=== PATIENT | female | born 1970 | race Caucasian/White ===

== ENCOUNTER 2018-12-30 17:13 | Emergency (ER) | payer OTHER ==
[2018-12-30] MEDS ORDERED: Ketorolac 30 MG/ML SDV IVPUSH ONE (17:23)
[2018-12-30] MEDS ORDERED: Ondansetron 4 MG/2 ML SDV IVPUSH ONE (17:24)
--- NOTE | 2018-12-30 17:43 | EDM.PDOC ---
ED HPI GENERAL MEDICAL PROBLEM - General Chief Complaint: Flank Pain Stated Complaint: BACK PAIN Time Seen by Provider: 12/30/18 17:20 Source of Information: Reports: Patient History Limitations: Reports: No Limitations - History of Present Illness INITIAL COMMENTS - FREE TEXT/NARRATIVE: 48-year-old white female approximate 45 minutes ago started having a sudden sharp left flank pain that was 100 out of 10 with no radiation but states that her vaginal area hurts just as much and also has dysuria she admits to having mild nausea but no vomiting no fever she states she does not have any medical problems normal renal issues no history of renal stones her father does have a history of renal stones Onset: Sudden Duration: Minutes: Quality: Reports: Sharp, Stabbing Severity: Severe Improves with: Reports: None Worsens with: Reports: Other (lying down) Associated Symptoms: Reports: No Other Symptoms Left Flank Pain Score (Numeric/FACES): 10 - Related Data Allergies Allergy/AdvReac Type Severity Reaction Status Date / Time No Known Allergies Allergy Verified 12/30/18 17:25 Home Meds: Home Meds . [No Known Home Meds] 12/30/18 [History] Past Medical History - Past Health History Medical/Surgical History: Denies Medical/Surgical History Social & Family History - Tobacco Use Smoking Status *Q: Unknown Ever Smoked ED ROS GENERAL - Review of Systems Review Of Systems: See Below Constitutional: Denies: Fever, Chills, Malaise, Weakness HEENT: Reports: No Symptoms Respiratory: Reports: No Symptoms Cardiovascular: Reports: No Symptoms Endocrine: Reports: No Symptoms GI/Abdominal: Denies: Abdominal Pain, Anorexia, Constipation, Vomiting : Reports: Dysuria, Flank Pain. Denies: Frequency, Hematuria, Urgency, Urinary Retention Musculoskeletal: Reports: No Symptoms Skin: Reports: No Symptoms Neurological: Reports: No Symptoms Psychiatric: Reports: No Symptoms Hematologic/Lymphatic: Reports: No Symptoms Immunologic: Reports: No Symptoms ED EXAM, RENAL/ - Physical Exam Exam: See Below Exam Limited By: No Limitations General Appearance: Alert, WD/WN, Mild Distress. No: No Apparent Distress Throat/Mouth: Normal Inspection, Normal Oropharynx, Other (mmm) Neck: Normal Inspection, Full Range of Motion Respiratory/Chest: No Respiratory Distress Cardiovascular: Regular Rate, Rhythm, Tachycardia (mild tachycardia ) GI/Abdominal: Normal Bowel Sounds, Soft, Non-Tender, No Organomegaly, Other (no CVA ttp ) Back Exam: No: Full Range of Motion, CVA Tenderness (L), CVA Tenderness (R) Extremities: Normal Inspection, Normal Range of Motion Neurological: Alert, Oriented, CN II-XII Intact, Normal Cognition, Normal Gait Skin Exam: Warm, Dry, Intact, Normal Color, No Rash Course - Vital Signs Text/Narrative:: Urinalysis was ordered Toradol 30 mg IV Zofran 4 mg IV Patient was given morphine 2 mg IV 2 Benadryl 12.5 mg IV 2 and was rechecked states she feels much better now willing to go home with medications CT report revealed a 3 mm obstructing calculus at the left UVJ with mild upstream hydronephrosis Spoke with Dr. archer urology at [facility] states have the patient hydrate Flomax and pain medication and follow up outpatient in clinic Patient was given a prescription for Flomax 0.4 mg one by mouth every at bedtime number of 10 Lortab 5 325 mg 1 by mouth every 4-6 hours as needed number of 13 Phenergan 25 mg one by mouth every 4-6 hours number of 20 Last Recorded V/S: Last Vital Signs Temp 36.8 C 12/30/18 17:13 Pulse 104 H 12/30/18 17:13 Resp 20 12/30/18 17:13 BP 127/75 12/30/18 17:13 Pulse Ox 97 12/30/18 17:13 - Orders/Labs/Meds Labs: Laboratory Tests 12/30/18 12/30/18 12/30/18 Range/Units 17:35 17:36 18:13 WBC 13.6 H (4.0-10.0) x10^3/uL RBC 4.77 (4.00-5.50) x10^6/uL Hgb 14.4 (12.0-16.0) g/dL Hct 41.8 (33.0-47.0) % MCV 87.6 (78.0-93.0) fL MCH 30.2 (26.0-32.0) pg MCHC 34.4 (32.0-36.0) g/dL RDW Coeff of Marcos 13.7 (10.0-15.0) % Plt Count 291 (130-400) x10^3/uL Neut % (Auto) 76.8 (50.0-80.0) % Lymph % (Auto) 16.4 L (25.0-50.0) % [place] % (Auto) 5.2 (2.0-11.0) % Eos % (Auto) 1.4 (0.0-4.0) % Baso % (Auto) 0.2 (0.2-1.2) % Sodium (136-145) mmol/L Potassium (3.5-5.1) mmol/L Chloride (98-107) mmol/L Carbon Dioxide (21-32) mmol/L Anion Gap (10-20) mmol/L BUN (7-18) mg/dL Creatinine (0.55-1.02) mg/dL Est Cr Clr Drug Dosing Estimated GFR (MDRD) Glucose (74-106) mg/dL Calcium (8.5-10.1) mg/dL Urine Color Yellow (YELLOW) Urine Appearance Slightly cloudy H (CLEAR) Urine pH 5.5 (5.0-8.0) Ur Specific [employer] [place] 1.025 Urine Protein Negative (NEGATIVE) mg/dL Urine Glucose (UA) Negative (NEGATIVE) mg/dL Urine Ketones 40 H (NEGATIVE) mg/dL Urine Occult Blood Moderate H (NEGATIVE) Urine Nitrite Negative (NEGATIVE) Urine Bilirubin Negative (NEGATIVE) Urine Urobilinogen 0.2 (0.2) EU/dL Ur Leukocyte Esterase Negative (NEGATIVE) Urine RBC 5-10 H (NOT SEEN) /HPF Urine WBC 0-5 (NOT SEEN) /HPF Ur Squamous Epith Cells Moderate H (NEGATIVE) /HPF Urine Bacteria Occasional H (NEGATIVE) /HPF Urine Mucus Rare H (NEGATIVE) /LPF Urine HCG, Qual Negative (NEGATIVE) 12/30/18 Range/Units 18:13 WBC (4.0-10.0) x10^3/uL RBC (4.00-5.50) x10^6/uL Hgb (12.0-16.0) g/dL Hct (33.0-47.0) % MCV (78.0-93.0) fL MCH (26.0-32.0) pg MCHC (32.0-36.0) g/dL RDW Coeff of Marcos (10.0-15.0) % Plt Count (130-400) x10^3/uL Neut % (Auto) (50.0-80.0) % Lymph % (Auto) (25.0-50.0) % [place] % (Auto) (2.0-11.0) % Eos % (Auto) (0.0-4.0) % Baso % (Auto) (0.2-1.2) % Sodium 140 (136-145) mmol/L Potassium 3.9 (3.5-5.1) mmol/L Chloride 104 (98-107) mmol/L Carbon Dioxide 21 (21-32) mmol/L Anion Gap 18.9 (10-20) mmol/L BUN 18 (7-18) mg/dL Creatinine 1.1 H (0.55-1.02) mg/dL Est Cr Clr Drug Dosing TNP Estimated GFR (MDRD) 53 Glucose 98 (74-106) mg/dL Calcium 9.1 (8.5-10.1) mg/dL Urine Color (YELLOW) Urine Appearance (CLEAR) Urine pH (5.0-8.0) Ur Specific [employer] [place] Urine Protein (NEGATIVE) mg/dL Urine Glucose (UA) (NEGATIVE) mg/dL Urine Ketones (NEGATIVE) mg/dL Urine Occult Blood (NEGATIVE) Urine Nitrite (NEGATIVE) Urine Bilirubin (NEGATIVE) Urine Urobilinogen (0.2) EU/dL Ur Leukocyte Esterase (NEGATIVE) Urine RBC (NOT SEEN) /HPF Urine WBC (NOT SEEN) /HPF Ur Squamous Epith Cells (NEGATIVE) /HPF Urine Bacteria (NEGATIVE) /HPF Urine Mucus (NEGATIVE) /LPF Urine HCG, Qual (NEGATIVE) Meds: Medications Discontinued Medications Generic Name Dose Route Start Last Admin Trade Name Coty PRN Reason Stop Dose Admin Diphenhydramine HCl 12.5 mg 12/30/18 18:21 12/30/18 18:28 Benadryl IVPUSH 12/30/18 18:22 12.5 mg ONETIME ONE Administration Diphenhydramine HCl 12.5 mg 12/30/18 20:05 12/30/18 20:14 Benadryl IVPUSH 12/30/18 20:06 12.5 mg ONETIME ONE Administration Ketorolac Tromethamine 30 mg 12/30/18 17:23 12/30/18 17:32 Toradol IVPUSH 12/30/18 17:24 30 mg ONETIME ONE Administration Morphine Sulfate 2 mg 12/30/18 18:20 12/30/18 18:30 Morphine IVPUSH 12/30/18 18:21 2 mg ONETIME ONE Administration Morphine Sulfate 2 mg 12/30/18 20:05 12/30/18 20:13 Morphine IVPUSH 12/30/18 20:06 2 mg ONETIME ONE Administration Ondansetron HCl 4 mg 12/30/18 17:24 12/30/18 17:33 Zofran IVPUSH 12/30/18 17:25 4 mg ONETIME ONE Administration Departure - Departure Time of Disposition: 20:45 Disposition: Home, Self-Care 01 Condition: Good Clinical Impression: Renal calculus, left, Hematuria - Discharge Information Referrals: Eufemia Sanford, SEC[employer]ARM TECHNICIAN [Primary Care Provider] - Forms: ED Department Discharge - Problem List & Annotations (1) Renal calculus, left SNOMED Code(s): 60212673 Code(s): N20.0 - CALCULUS OF KIDNEY Status: Acute Current Visit: Yes (2) Hematuria SNOMED Code(s): 74388945 Code(s): R31.9 - HEMATURIA, UNSPECIFIED Status: Acute Current Visit: Yes (3) Dysuria SNOMED Code(s): 02265538 Code(s): R30.0 - DYSURIA Status: Acute Current Visit: Yes
[2018-12-30] MEDS ORDERED: Morphine 2 MG/ML Syringe IVPUSH ONE ×2 (18:20→20:05)
[2018-12-30] MEDS ORDERED: diphenhydrAMINE 50 MG/ML SDV IVPUSH ONE ×2 (18:21→20:05)
[2018-12-30 18:27] LABS: CHLORIDE,CL 104 mmol/L (98-107); SODIUM,NA 140 mmol/L (136-145)
[2018-12-30 18:28] LABS: ANION GAP 18.9 mmol/L (10-20)
--- NOTE | 2018-12-30 19:15 | CT ---
[id number] CT/CT Abdomen Pelvis WO IV EXAM: CT Abdomen Pelvis WO IV CLINICAL DATA: LEFT FLANK PAIN. COMPARISON STUDY: None. FINDINGS: Gallbladder has been resected. Liver, spleen, pancreas,, and adrenal glands. In the 3 mm calculus at the left UVJ resulting in mild left-sided hydroureteronephrosis. Multiple additional 2 and 3 mm nonobstructing bilateral renal calculi. Stone burden is more prominent on the left. Mild amount of free fluid layering dependently in the pelvis. No bowel obstruction or inflammation. Uterus has been resected. Adnexal regions are unremarkable. IMPRESSION: 3 mm obstructing calculus at the left UVJ with mild upstream hydroureteronephrosis. Saw Hernandez MD 12/30/18 [id number] Thank you for allowing us to participate in the care of your patient.
[2018-12-30] MEDS ORDERED: Tamsulosin 0.4 MG Cap.ER PO ONE (21:09)
[2018-12-30] MEDS ORDERED: Take Home: Acetaminophen/oxyCODONE 325-5 MG, 5 Tab Pack PO ONE (21:09)
== END 2018-12-30 21:27 | disposition home or self-care (01) ==
LOC: VM.ED 17:13
DX: N13.2 Hydronephrosis with renal and ureteral calculous obstruction (principal)
CPT/HCPCS: 36415; 74176; 80048; 81001; 81025; 85025; 96374; 96375; 96376; 99284; A9270; J1200; J1885; J2270; J2405; 99283-GF